=== PATIENT | male | born 1945 | race Caucasian/White ===

== ENCOUNTER → 2021-08-14 10:34 | Outpatient (BNVA) | payer OTHER, SELFPAY | PROVIDERS: PCP Internal Medicine; Visit Provider Nurse Practitioner Family ==

== ENCOUNTER → 2021-12-14 10:32 | Outpatient (BNVA) | payer OTHER, SELFPAY | PROVIDERS: PCP Internal Medicine; Visit Provider Nurse Practitioner Family | DX: G62.9 Polyneuropathy, unspecified (principal); R41.3 Other amnesia; R25.1 Tremor, unspecified; R53.83 Other fatigue ==

== ENCOUNTER → 2022-09-13 12:59 | Outpatient (BNVA) | payer OTHER, SELFPAY | PROVIDERS: Visit Provider Nurse Practitioner Family | DX: Z13.89 Encounter for screening for other disorder (principal) ==

== ENCOUNTER → 2022-10-26 13:34 | Outpatient (BNVA) | payer OTHER, SELFPAY | PROVIDERS: Visit Provider Physician Assistant | DX: Z13.89 Encounter for screening for other disorder (principal) ==

== ENCOUNTER → 2022-12-16 14:30 | Outpatient (BNVA) | payer OTHER, SELFPAY | PROVIDERS: PCP Internal Medicine; Visit Provider Nurse Practitioner Family | DX: M54.50 Low back pain, unspecified (principal); G89.29 Other chronic pain ==

== ENCOUNTER → 2023-01-14 15:34 | Outpatient (BNVA) | payer OTHER, SELFPAY | PROVIDERS: PCP Internal Medicine; Visit Provider Physician Assistant ==

== ENCOUNTER 2023-03-15 13:47 | Outpatient (REF) | payer OTHER, SELFPAY ==
--- NOTE | ~2023-03-15 | MR_ITS ---
EXAMINATION: MR LUMBAR SPINE WITHOUT CONTRAST CLINICAL INFORMATION: Back pain. COMPARISON: None available. TECHNIQUE: Multiplanar, multisequence imaging was obtained. FINDINGS: VERTEBRAL BODIES AND PARASPINAL STRUCTURES: There is a benign intraosseous hemangioma in the L3 vertebral body which is hyperintense on T1 and T2-weighted imaging. The remainder of the marrow is somewhat homogeneously low in signal on the T1-weighted sequences. There is a lkag-sx-fwnucnph rightward curvature of the lumbar spine centered at the L2 level. Reduced intradiscal signal and multilevel disc space narrowing evident as a result of spondylosis. There are mixed chronic and mild edematous endplate changes with severe left-sided disc space narrowing at the L2-L3 and L3-L4 levels. No compression fractures are identified. There is a mild posterior subluxation at the L1-L2 level. Minimal anterolisthesis evident at the L5-S1 level. The paraspinal soft tissues are unremarkable. There are mild degenerative changes of the left sacroiliac joint. CONUS MEDULLARIS AND CAUDA EQUINE: The distal cord, conus tip, and cauda equina nerve roots are normal. SPINAL LEVELS: L1-L2: Mild retrosubluxation and disc bulge with anterior endplate spurring. No central canal stenosis or foraminal narrowing. L2-L3: Chronic disc desiccation and left-sided disc space narrowing with a diffuse disc bulge and mild facet arthropathy slightly encroaching upon the central canal. Mild right foraminal narrowing due to bulging disc. L3-L4: Significant left lateral disc space narrowing and degenerative endplate changes with a broad-based disc bulge and moderate facet arthropathy resulting in mild central canal stenosis. A left foraminal disc protrusion with osseous spurring results in significant encroachment and mass effect upon the exiting left L3 nerve root. L4-L5: Posterior disc bulge present with a left paracentral disc protrusion mildly impressing upon the left L5 nerve root laterally in the subarticular zone. Additional right subarticular to right foraminal broad-based disc protrusion, which in combination with facet spurring, results in moderate right foraminal encroachment and mild distortion of the exiting right L4 nerve root. An additional extruded component disc migrates inferiorly into the right lateral recess with mild mass effect upon the right L5 nerve root. L5-S1: Mild disc bulge and spxy-dz-wrquklqo facet arthropathy, worse on the right side. No central canal stenosis. Osseous spurring with mazv-zh-[id number] right foraminal encroachment. Bulging disc and endplate spurring contact the exiting right L5 nerve root in the neural foramen. MR/MR lumbar spine wo con IMPRESSION: 1. Figq-by-ctxkotsv rightward curvature of the lumbar spine centered at the L2 level with multilevel spondylitic changes. No compression fractures. 2. Left foraminal disc protrusion and osseous spurring at the L3-L4 level with significant encroachment and mass effect upon the left L3 nerve root. Mild central canal stenosis. 3. Left paracentral disc protrusion at the L4-L5 level mildly impressing upon the left L5 nerve root. Right subarticular to right foraminal broad-based disc protrusion with facet spurring resulting in moderate right foraminal encroachment and mild distortion of the right L4 nerve root. Additional extruded component of disc migrating inferiorly into the right lateral recess with mild mass effect upon the right L5 nerve root. 4. Bulging disc and endplate spurring posterolaterally on the right side at L5-S1 contact the exiting right L5 nerve root in the neural foramen. 5. Generalized signal abnormality within the bone marrow. This is nonspecific and possible etiologies include stimulated red marrow (as can be seen with smoking, chronic anemia, etc.), chronic infection, and early phases of myelodysplastic/myeloproliferative disorders. Consider correlation with clinical history and, potentially, a CBC with blood smear.
--- NOTE | ~2023-03-15 | XR_ITS ---
EXAMINATION: Skull. Pre-MRI. CLINICAL HISTORY: Previous. TECHNIQUE: 2 views. FINDINGS: This no radiopaque foreign body seen in the skull. Visualized bilateral paranasal sinuses and mastoid air cells are well-aerated. XR/XR pre mri screening IMPRESSION: No radiopaque metallic foreign body seen in the skull, sinuses or the orbits.
== END 2023-03-15 13:48 | disposition home or self-care (01) ==
LOC: HO.MRI 13:47
PROVIDERS: PCP Internal Medicine; Visit Provider Physician Assistant
DX: M54.9 Dorsalgia, unspecified (principal)
CPT/HCPCS: 72148

== ENCOUNTER 2023-04-26 14:34 | Outpatient (AMB) | payer OTHER, SELFPAY ==
--- NOTE | 2023-04-26 14:37 | MHC.OFFVIS ---
Intake Vital Signs 04/26/23 14:39 Height 5 ft 10 in Weight 190 lb 4 oz BMI 27.3 BP 130/68 Blood Pressure Location Lt brachial Position Sitting Pulse 82 Pulse Source Pulse Oximeter Pulse Oximetry (%) 92 Oxygen Delivery Method Room Air Intake Visit Reasons: 4m follow up-Confirmed Intake Note: Pt presents today for worsening symptoms. States he uses walker from time to time but pt prefers not to use it. Pt states when he wakes he feels the best after after his meds . Pt states as the day goes on and hes doing his daily task he notices an increase in symptoms. states balance is off and hes dizzy and walking becomes labored. Pt states he does a lot of THC and edibles. Pt states he gets high daily. Pt uses it in pm. States he also gets an upset stomach in the pm. Pt states sometimes he doesnt make it. Pt also complaints of urinating a lot. Allergies azithromycin Adverse Reaction (Mild, Verified 04/26/23 14:47) Rash Medication List - Last Reconciled 05/01/23 by CLARISSE Moore acetaminophen 1,000 mg PO DAILY acyclovir 200 mg PO DAILY ascorbic acid (vitamin C) ER 1,500 mg PO DAILY clotrimazole 1% appl topical DAILY coenzyme Q10 10 mg PO DAILY [curcumin PO DAILY] gabapentin 300 mg PO TID hawthorn mg PO [magnalife Leg and back pain sublingual DAILY] [MSN PO DAILY] nystatin (Nystop) topical BID prasterone (dhea) (DHEA) 50 mg PO DAILY pravastatin 20 mg PO DAILY [Sour carballo and tumeric PO DAILY] sulindac 200 mg PO BID [tumeric PO DAILY] vitamin E (dl, acetate) 45 mg PO DAILY HPI HPI Comments History of Present Illness Details 77-yr-old male presents for f/u visit. Pt reports he is having more noticable STM lapses. He is taking a number of OTC supplements in for neuro-protection. He does take marijuana. He is having episodes in the afternoon- where he feels like he could pass out. His RUE still is free from tremor. LUE tremor is stable. He can be off-balance walking. He had not had f/u in [place]- he thought that we were going to make that appt for him. [facility] Surgical History Hx of microdiscectomy Hx of bone graft Hx of lithotripsy Hx of appendectomy Family History Mother No problems noted. Father Family history of prostate problems Heart disease Family/Other Breast cancer Social History Household Members: None Alcohol intake: current Alcohol intake frequency: a few times a week Alcohol type: beer Patient Tobacco Use Status: Former Tobacco user Quit Date: >25 yrs ago Tobacco use type: Cigarette Substance Use Type: Marijuana Review of Systems Const All systems reviewed & are unremarkable except as noted in HPI and below Physical Exam Vital Signs: Last Vital Signs Pulse 82 04/26/23 14:39 BP 130/68 04/26/23 14:39 Pulse Ox 92 04/26/23 14:39 Oxygen Delivery Method Room Air 04/26/23 14:39 BMI result Body Mass Index 27.3 Const General: cooperative and no acute distress Orientation/consciousness: patient oriented x3 HEENT Head: Yes normocephalic Resp Effort & Inspection: normal respiratory effort and able to speak in complete sentences Neuro Other: LUE postural tremor. LUE FFM- ok RUE 1st-2nd finger FFM- decreased General: patient oriented x3 and CN's II-XI intact bilaterally Cognition (Neuro): normal cognition Motor exam (neuro): 5/5 motor strength present throughout Psych Appearance: grossly normal Mental Status: mental status grossly normal Affect: normal affect Attitude: cooperative Thought process: Normal thought process present Assessment & Plan Assessment & Plan (1) Essential tremor: Comment: s/p left focused ultrasound in November 2020 at [facility]. Code(s): G25.0 - Essential tremor (2) Memory difficulties: Code(s): R41.3 - Other amnesia (3) Polyneuropathy: Comment: EMG/NCS (Jul 2021 at [facility]): BLE mild-moderate axonal sensory and motor peripheral neuropathy. Code(s): G62.9 - Polyneuropathy, unspecified Plan Check labs for common etiologies of memory difficulties. Reviewed pt's supplement list- advised him to hold zinc as taken usp this may induce copper deficiency, hold Shilajit- as this may cause hypotension. Increase fluids. Walk w/ cane or walker. Monitor tremor and gait. f/u w/ Dr Jeffry Mc at [facility] as planned- we will try to reach out to confirm his annual f/u appt. Future considerations- sleep study and/or neuro-psych eval- pt has declined.. f/u in 4 months or sooner prn. Orders: Orders Complete Blood Count Auto Diff 04/26/23 G62.9 - Polyneuropathy, unspecified, R25.1 - Tremor, unspecified, R41.3 - Other amnesia UA CC w/rflx Micro + Cult 04/26/23 R35.0 - Frequency of micturition, R39.15 - Urgency of urination, R41.3 - Other amnesia Copper, serum 04/26/23 G62.9 - Polyneuropathy, unspecified, R25.1 - Tremor, unspecified, R41.3 - Other amnesia Zinc 04/26/23 G62.9 - Polyneuropathy, unspecified, R25.1 - Tremor, unspecified, R41.3 - Other amnesia Vitamin B12 and Folate 04/26/23 G62.9 - Polyneuropathy, unspecified, R25.1 - Tremor, unspecified, R41.3 - Other amnesia Homocysteine 04/26/23 G62.9 - Polyneuropathy, unspecified, R25.1 - Tremor, unspecified, R41.3 - Other amnesia Comprehensive Met. Panel 04/26/23 G62.9 - Polyneuropathy, unspecified, R25.1 - Tremor, unspecified, R41.3 - Other amnesia Erythrocyte Sedimentation Rate 04/26/23 G62.9 - Polyneuropathy, unspecified, R25.1 - Tremor, unspecified, R41.3 - Other amnesia CRP High Sensitivity 04/26/23 G62.9 - Polyneuropathy, unspecified, R25.1 - Tremor, unspecified, R41.3 - Other amnesia Methylmalonic Acid 04/26/23 G62.9 - Polyneuropathy, unspecified, R25.1 - Tremor, unspecified, R41.3 - Other amnesia Coding Level of Care Code Est Pt Level 4 (85564) Diagnoses Essential tremor G25.0 Memory difficulties R41.3 Polyneuropathy G62.9
[2023-04-26 14:39] VITALS: BP 130/68; PULSE 82; O2SAT 92; BMI 27.3
== END 2023-04-26 15:38 | disposition home or self-care (01) ==
PROVIDERS: PCP Internal Medicine; Visit Provider Nurse Practitioner Family
DX: G25.0 Essential tremor (principal); R41.3 Other amnesia; G62.9 Polyneuropathy, unspecified
CPT/HCPCS: 99214

== ENCOUNTER → 2023-04-26 14:34 | Outpatient (BNVA) | payer OTHER, SELFPAY | PROVIDERS: PCP Internal Medicine; Visit Provider Nurse Practitioner Family | DX: M54.50 Low back pain, unspecified (principal); G89.29 Other chronic pain ==

== ENCOUNTER 2025-04-18 13:54 | Outpatient (AMB) | payer OTHER, SELFPAY ==
--- NOTE | 2025-04-18 14:06 | A.OFFVIS_ITS ---
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 Accompanied by: Self / Same As Patient Allergies azithromycin Adverse Reaction (Mild, Verified 04/18/25 14:11) Rash Medication List - Last Reconciled 04/18/25 by CLARISSE Moore acetaminophen 1,000 mg PO DAILY acyclovir 200 mg PO DAILY alpha lipoic acid PO ascorbic acid (vitamin C) ER 1,500 mg PO DAILY cholecalciferol (vitamin D3) PO clotrimazole 1% appl topical DAILY coenzyme Q10 10 mg PO DAILY [curcumin PO DAILY] gabapentin 300 mg PO TID hawthorn mg PO [magnalife Leg and back pain sublingual DAILY] magnesium gluconate (Mag-G) 27 mg PO BID [MSN PO DAILY] nystatin (Nystop) topical BID prasterone (DHEA) (DHEA) 50 mg PO DAILY pravastatin 20 mg PO ONCE [Sour carballo and tumeric PO DAILY] sulindac 200 mg PO BID tamsulosin 0.4 mg PO BEDTIME [tumeric PO DAILY] vitamin E (dl, acetate) 200 mg PO DAILY HPI Comments Details: 79-yr-old male presents for follow-up visit of tremor, gait difficulties, and co gnitive difficulties. Patient was last seen by myself in April 2023. Patient reports that he has tried to reduce his gabapentin dose from 300mg TID to 300mg every 12 hours, however this has made him feel unwell He also asks about his sleep. States he was sleeping well on Melatonin, however once he started on tansulosin, he has increased nocturia (4-5 times per night). He also endorses urinary hesitancy if he has delayed voiding or urinary urgency, if he puts his hands in water. He denies daytime urinary frequency. Now, however, he states that he has stopped the tamsulosin, and is now voiding about 3 times per night. He is followed by urology, however notes that he was unable to do the homework assigned to him- such as intake and output records. Patient reports he is still having some cognitive difficulties. For instance, sometimes slow word recall. He denies difficulties with appointments, medications, or calculations. He also reports that he was having recurrent L > R sinusitis, which has since resolved. However, he had seen ENT, who had the patent stop OTC nasal decongestant, try Flonase, and then had patient undergo a brain MRI. Per patient, he states after the MRI, his balance became worse. He also states that his neurosurgeon in [place] told him that he should not have brain MRIs due to his h/o FUS tx. However, he has not needed to be seen in [place] in a few years now. Thus, he has decided against following up with ENT. His RUE is still tremor-free. His LUE continues to have LUE action tremor. He can still be off-balance while walking, tends to tip to the right. He also reports his right ankle is slightly swollen. His RLE tends to drag. Denies hyposmia. He is active at home. Does his own grocery shopping. He has not done PT in a while, states the last time he did PT, he felt worse afterwards. He is seeing Dr Wiseman, physiatry, for low back pain/scoliosis w/o sciatica symptoms. He does have intermittent right toe numbness or toe curling. Using a back brace prn which helps some. He denies REM sleep behaviors. He has had a few falls out of bed- improved since sleeping away from the edge of the bed. He does wonder if these symptoms are consistent with Parkinson's disease. [facility] Surgical History (Updated 04/18/25 @ 14:12 by Sheyla Sanchez CMA) History of hernia surgery Hx of microdiscectomy Hx of bone graft Hx of lithotripsy Hx of appendectomy Family History Mother No problems noted. Father Family history of prostate problems Heart disease Family/Other Breast cancer Social History Household Members: None Alcohol intake: current Alcohol intake frequency: a few times a week Alcohol type: beer Patient Tobacco Use Status: Former Tobacco user Tobacco use type: Cigarette Substance Use Type: Marijuana Review of Systems Const All systems reviewed & are unremarkable except as noted in HPI and below Physical Exam Vital Signs: Last Vital Signs Pulse 71 04/18/25 14:07 BP 130/60 04/18/25 14:07 Pulse Ox 95 04/18/25 14:07 Oxygen Delivery Method Room Air 04/18/25 14:07 Const General: cooperative and no acute distress Orientation/consciousness: patient oriented x3 HEENT Head: Yes normocephalic Resp Effort & Inspection: normal respiratory effort and able to speak in complete sentences Neuro Other: Soft voice LUE mild postural and kinetic tremor BUE elbow tone BUE KARLA poor fluidity LUE FFM- slightly decreased Foot taps RLE slightly decreased Stands slowly, decreased arm swing, short steps with low floor clearance, right foot without heel-toe, without imbalance. General: patient oriented x3 and CN's II-XI intact bilaterally Cognition (Neuro): normal cognition Motor exam (neuro): 5/5 motor strength present throughout Psych Appearance: grossly normal Mental Status: mental status grossly normal Affect: normal affect Attitude: cooperative Thought process: Normal thought process present Assessment & Plan Assessment & Plan (1) Essential tremor: Comment: s/p left focused ultrasound in November [address] Jeffry Mc at [facility]. Code(s): G25.0 - Essential tremor Category: Medical (2) Memory difficulties: Code(s): R41.3 - Other amnesia Category: Medical (3) Polyneuropathy: Comment: EMG/NCS (Jul 2021 at [facility]): BLE mild-moderate axonal sensory and motor peripheral neuropathy. Code(s): G62.9 - Polyneuropathy, unspecified Category: Medical Plan Discussed that patient continues to have LUE essential tremor symptoms. However, he does not have clear symptoms of Parkinson's. There is some mild decrease in left fine finger movements, where as he has decreased right foot taps and gait changes with more difficulty on the right. It is possible that patient is presenting with ET plus symptoms, however this maybe compounded by his history of low back pain and peripheral neuropathy. We will try to obtain recent head imaging report, to see if there have been any indication of cardio vascular insults. We will continue to monitor. Follow-up with physiatry as scheduled. I would defer to physiatry regarding patient's desire to wean off gabapentin. Encouraged patient to consider retry he physical therapy. Future considerations- sleep study and/or neuro-psych eval- pt has previously declined. f/u in 6 months or sooner prn. 01/21/2025, brain MRI with and without contrast, ordered by IMPRESSION: 1. No evidence of retrocochlear lesion. 2. Right mastoid fluid. 3. Confluent T2 signal abnormality in the supratentorial white matter, progressed from MRI dated 01/04/2018. This is nonspecific though statistically most likely related to chronic microvascular ischemic change. Please correlate clinically. 4. Sinus disease as described, including complete evaluation of the right mastoid sinus. Coding Level of Care Code Est Pt Level 4 (09708) Diagnoses Essential tremor G25.0 Memory difficulties R41.3 Polyneuropathy G62.9
[2025-04-18 14:07] VITALS: BP 130/60; PULSE 71; O2SAT 95
== END 2025-04-18 15:22 | disposition home or self-care (01) ==
LOC: HO.HSMS 13:54
PROVIDERS: PCP Internal Medicine; Visit Provider Nurse Practitioner Family
DX: G25.0 Essential tremor (principal); R41.3 Other amnesia; G62.9 Polyneuropathy, unspecified
CPT/HCPCS: 99214

== ENCOUNTER 2025-06-19 09:48 | Outpatient (AMB) | payer OTHER, SELFPAY ==
--- NOTE | 2025-06-19 09:57 | A.PHYSOV_ITS ---
Vital Signs 06/19/25 10:00 Height 5 ft 10 in Weight 178 lb BMI 25.5 Intake Visit Reasons: F/U AFTER INJECTION 04/27/2025 Intake Note: Patient is a 79 year old male in office today for a follow up after right L4 and L5 transforaminal epidural injection 04/27/25. Did n't work Allergies azithromycin Adverse Reaction (Mild, Verified 06/19/25 10:01) Rash HPI Comments Details: History of Present Illness The patient is a 79-year-old male presenting for a follow-up visit for chronic pain involving his lower back. He has a history of left-sided radicular pain, which has previously responded to left L2 and L3 transforaminal injections on multiple occasions. A lumbosacral spine MRI on June 02, 2022, was consistent with possible compression of the right L4 and L5 nerve roots, and he had a right L5 transforaminal injection on December 03, 2022. He returned for care after a two-year interval with increasing right-sided radicular pain and ambulates with a single point cane. He underwent right L4 and L5 transforaminal epidural steroid injections on April 27, 2025. Following the most recent injection, he experienced leg weakness, which he says he was not warned about it, and subsequently had a severe fall, resulting in a hematoma of the ankle and persistent scabs on his foot. However, potential leg weakness after the procedure was clearly explained in his postprocedure instructions. The leg weakness has since resolved. He reports the injection offered some benefit, allowing him to be active a little longer before the onset of low back ache, but feels he is overall the same as he was before. His right leg pain has not significantly improved. Unfortunately, he fell in the house and experienced some bleeding and scratching in his both lower extremities. Even now he has some scabs. The patient's other medical history includes peripheral neuropathy, right foot drop, and gait imbalance which he attributes to a past brain surgery for a lesion. He denies any change in bowel or bladder habits and denies fever or chills. He is currently receiving physical therapy. Pain Description - Location: Low back with radiation to the right leg. - Quality: Described as a lower back ache. - Exacerbating Factors: Worsens with prolonged activity, such as raking, mowing, and moving furniture. - Relieving Factors: Rest and sitting down. - Interference with Function: Pain causes him to stop activity and find a seat. - It also causes severe fatigue the day after overexertion. Results - Imaging: - Lumbosacral spine MRI (06/02/2022): Consistent with possible compression of the right L4 and L5 nerve roots. - Brain Scan (recent): Reviewed by his brain surgeon, who noted his increasing imbalance and confirmed no change in a known, inoperable lesion. [facility] Medical History (Updated 06/19/25 @ 12:35 by Derek Wright DO) Spinal stenosis, lumbar region with neurogenic claudication Lumbar radiculitis Surgical History History of hernia surgery Hx of microdiscectomy Hx of bone graft Hx of lithotripsy Hx of appendectomy Family History Mother No problems noted. Father Family history of prostate problems Heart disease Family/Other Breast cancer Social History Household Members: None Alcohol intake: current Alcohol intake frequency: a few times a week Alcohol type: beer Patient Tobacco Use Status: Former Tobacco user Tobacco use type: Cigarette Substance Use Type: Marijuana Review of Systems Narrative Review of Systems - Constitutional: Reports significant fatigue the day after overexertion. - Denies fever or chills. - Musculoskeletal: Reports lower back ache that occurs with prolonged activity. - Neurological: Reports right-sided radicular pain and a history of left-sided radicular pain. - Reports peripheral neuropathy with a sensation of his toes crunching up . - Reports right foot drop. - Reports imbalance with a tendency to tip to the right. - Integumentary: Reports scabs on his foot from a recent fall. - Gastrointestinal: Denies any change in bowel habits. - Genitourinary: Denies any change in bladder habits. Physical Exam Exam Exam: Physical Exam - General: Patient ambulates with a single point cane. - Neurological: Examination reveals decent strength in the feet during motor testing. - Integumentary: Inspection of the lower legs reveals a couple of scabs. Generally neurological examination was nonfocal. Lumbar extension was restricted. Patient ambulates without antalgia, his gait was unsteady with single-point cane. Heel walk and toe walk were not tested. Vital Signs: BMI result Body Mass Index 25.5 Assessment & Plan Assessment & Plan (1) Chronic low back pain: Code(s): M54.50 - Low back pain, unspecified; G89.29 - Other chronic pain Category: Medical (2) Lumbar radiculitis: Code(s): M54.16 - Radiculopathy, lumbar region Category: Medical (3) Spinal stenosis, lumbar region with neurogenic claudication: Code(s): M48.062 - Spinal stenosis, lumbar region with neurogenic claudication Category: Medical Plan Pain Management - Affect: The patient expresses dissatisfaction with a post-procedural fall and a perceived lack of warning regarding potential leg weakness. - Analgesia: He underwent right L4-L5 transforaminal epidural steroid injections on April 27, 2025. - He reports the outcome as being the same as I was before, though he can perhaps be active a little longer before the pain begins. - Adverse Effects: He experienced temporary leg weakness post-injection, which resulted in a fall, a hematoma of the lower extremities, and residual scabs on his lower legs. - Activities of Daily Living: He ambulates with a cane. - He can perform strenuous yard work but experiences significant subsequent back pain and is very fatigued the following day. - He identifies balance as his main problem, more so than pain. - He is currently attending physical therapy. - Aberrant Drug Related Behaviors: None discussed. Plan Patient was informed and verbally consented to the use of an ambient scribe for clinic note documentation during this visit. 1. Chronic Low Back Pain With Lumbosacral Radiculopathy The patient is status post right L4 and L5 transforaminal epidural steroid injections for right-sided radicular pain. He reports minimal therapeutic benefit, stating he can be active for a slightly longer duration before pain onset but feels he is overall the same as I was before. He had a post- procedural complication of temporary leg weakness which resulted in a fall. Given the limited efficacy and his ability to remain active, no further procedu ral interventions will be pursued at this time. He will continue with physical therapy. 2. Gait Instability The patient reports that his primary functional problem is imbalance, not pain, with a tendency to tip to the right. This is likely multifactorial, related to his peripheral neuropathy, right foot drop, and a history of brain surgery. He uses a cane for safety, which is appropriate. Continued participation in physical therapy is encouraged to help improve strength and stability. Discussion Notes I discussed the patient's post-procedural course with him, including his fall. I acknowledged his complaint that he was not verbally warned about the potential for leg weakness and apologized for this experience. I explained that transient weakness is a known side effect from the local anesthetic used in the procedure and is mentioned on the provided informational sheet. Based on his report of minimal benefit from the recent injection, we agreed that no further interventions are indicated at this time and we will continue to monitor his condition. I advised him that continuing to use his cane is an important safety measure for his balance issues, and I commended his participation in physical therapy. Patient Instructions - We will not perform any further injections at this time. - Please continue with your physical therapy sessions to help with your strength and balance. - Continue to use your cane when walking to help prevent falls. - Be aware that doing too much activity, like heavy yard work, can make your back pain worse and cause you to feel very tired the next day. Coding Level of Care Code Est Pt Level 4 (31563) Add On Problem Visit Only Diagnoses Chronic low back pain M54.50; G89.29 Lumbar radiculitis M54.16 Spinal stenosis, lumbar region with neurogenic claudication M48.062
[2025-06-19 10:00] VITALS: BMI 25.5
== END 2025-06-19 10:20 | disposition home or self-care (01) ==
LOC: HO.HPHYS 09:49
PROVIDERS: PCP Internal Medicine; Visit Provider Physical Medicine & Rehabilitation
DX: M54.50 Low back pain, unspecified (principal); G89.29 Other chronic pain; M54.16 Radiculopathy, lumbar region; M48.062 Spinal stenosis, lumbar region with neurogenic claudication
CPT/HCPCS: 99214; G2211